=== PATIENT | male | born 1965 | race Caucasian/White ===

== ENCOUNTER 2017-03-30 12:59 | Emergency (ER) | payer MEDICAID, MEDICARE ==
[~2017-03-30] VITALS: Ht 185.4 cm; Wt 115.0 kg
[~2017-03-30 12:59] MED LIST: OFLO.3%A EACH EAR
[2017-03-30 13:03] VITALS: BP 167/91; PULSE 66; RESP 14; TEMP 97.9; O2SAT 99
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
--- NOTE | 2017-03-30 14:38 | PD ---
HPI Chief Complaint: Musculoskeletal Complaint Time Seen by Provider: 14:27 Travel History International Travel<30 days: No Contact w/Intl Traveler<30days: No Traveled to known affect area: No History of Present Illness HPI 51-year-old male presents to the emergency Department with multiple complaints. His is a patient here in the hospital and he is here from [facility] and he has not been able to follow-up with his primary care provider. He presents requesting an x-ray of his left hip secondary to clicking when ambulating and wanting to know if his surgical hardware is in place. His primary care provider wanted him to get an x-ray but he has been and able to follow-up secondary to his being hospitalized. He has history of hip replacement in 1989. Denies new or recent injury. Denies change in gait. Reports 8/10 pain. Takes Percocet for his pain. No known relieving or aggravating factors. Denies paresthesias, loss of sensation, decreased range of motion, decreased strength to the affected extremity. His second complaint is a rash to his groin area that is extremely dry and itchy and has spread down in between his legs and testicles times two weeks. He has tried herg-ssi-vnchmzh jock itch cream for 2 days. Denies fever, vomiting. Has not taken any other medications or tried any other treatments to alleviate symptoms. Symptoms are mild in severity. No known relieving or aggravating factors. His third complaint is a lesion to the shaft of his penis that he noticed this morning. He says it is also itchy. He has never had any lesions on his penis before. He thinks he may have gotten bit by a Flea. He denies penile discharge , pain. Denies testicular pain, swelling. Denies dysuria. Has not taken any medications or tried any treatments to alleviate this symptom. No known aggravating or relieving factors. Symptom is mild in severity. Primary care provider is in [facility]. Has no other medical complaints. No other modifying factors or associated signs and symptoms. FOR[facility] Social History Alcohol Use: No Tobacco Use: No Substance Use: No Allergies-Medications Reported Meds & Prescriptions Reported Meds & Active Scripts Active Floxin (Ofloxacin) 0.3 % Soln 10 Drop EACH EAR DAILY 7 Days Review of Systems Except as stated in HPI: all other systems reviewed are Neg Physical Exam Narrative GENERAL: Well-nourished, well-developed male patient, in no acute distress SKIN: Warm and dry. Dry, erythemic rash to the right groin area; I cannot distinguish if the lesion is vesicular; there is no drainage. HEAD: Atraumatic. Normocephalic. EYES: Pupils equal and round. ENT: Mucosa pink and moist. NECK: Trachea midline. No lymphadenopathy. CARDIOVASCULAR: Regular rate. RESPIRATORY: No retractions or tachypnea. GASTROINTESTINAL: Rounded. GENITOURINARY: Exam done in the presence of a nurse. Circumcised. Testes descended bilaterally without evidence of rotation. There is a single lesion to the dorsal shaft of the penis that measures less than 0.5 cm in diameter. No urethral discharge. MUSCULOSKELETAL: Left hip with full range of motion. Patient ambulatory with a normal gait. No obvious deformities. No clubbing. No cyanosis. No edema. NEUROLOGICAL: Awake and alert. Oriented 3. No obvious cranial nerve deficits. Motor grossly within normal limits. Normal speech. Moves all extremities. 5/5 strength to all extremities. PSYCHIATRIC: Appropriate mood and affect; insight and judgment normal. Data Data Last Documented VS Vital Signs Date Time Temp Pulse Resp B/P (MAP) Pulse Ox O2 Delivery O2 Flow Rate FiO2 03/30/17 13:03 97.9 66 14 167/91 (116) 99 Room Air Orders Orders Hip, Uni(Ap&Lat) W Ap Pelvis (03/30/17 13:22) Ed Discharge Order (03/30/17 14:39) MDM Medical Decision Making Medical Screen Exam Complete: Yes Emergency Medical Condition: Yes Medical Record Reviewed: Yes Differential Diagnosis Chronic hip pain, medical clearance, jock itch, genital herpes Narrative Course 51-year-old male with chronic left hip pain, rash of the groin area, and a single lesion of the penis. Patient is afebrile and nontoxic-appearing. He is ambulatory with a normal gait. Patient has Percocet for his chronic pain. Patient to use [id number] antifungal medication for his groin rash. Instructed patient to follow up with his primary care provider in regards to the lesion of his penis, or to return to the emergency department with worsening of symptoms. Instructed patient to follow up with primary care provider. Patient verbalizes understanding and agreement with treatment plan. Patient is medically cleared and stable for discharge. Discussed reasons to return to the emergency department. Patient agrees with treatment plan. The patients vital signs are stable and the patient is stable for outpatient follow- up and treatment. Patient discharged home, stable and in no acute distress. Diagnosis Primary Impression: Chronic left hip pain Additional Impressions: Rash of groin Lesion of penis Referrals: Orthopedist Primary Care Physician Patient Instructions: General Instructions, Genital Herpes Simplex (ED), Hip Pain (ED), Jock Itch (ED) Additional Instructions: Steq-vmw-gealfvb jock itch cream as directed and as needed for rash Continue pain medications as directed and as needed for hip pain Follow-up with primary care provider Med/Other Pt SpecificInfo: No Change to Meds, No Meds Exist/No RX given Disposition: 01 DISCHARGE HOME Condition: Stable Keara Ibarra Mar 30, 2017 14:38
== END 2017-03-30 15:25 | disposition home or self-care (01) ==
LOC: NEPK 12:59
DX: M25.552 Pain in left hip (principal); G89.29 Other chronic pain; R21 Rash and other nonspecific skin eruption; L98.9 Disorder of the skin and subcutaneous tissue, unspecified
CPT/HCPCS: 73502; 99283

== ENCOUNTER 2018-02-25 03:49 | Inpatient (IN) ==
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
[2018-02-25] MEDS ORDERED: Morphine Sulfate Inj 2 MG/ML Vial IV.PUSH ONE (06:10)
[2018-02-25] MEDS ORDERED: Sod Chloride 0.9% Inj 1,000 ML IV.CONT SCH (06:15)
[2018-02-25] MEDS ORDERED: Bisacodyl 10 MG Supp RECTAL PRN (06:47)
[2018-02-25] MEDS ORDERED: Acetaminophen 325 MG Tablet PO PRN (06:47)
[2018-02-25 06:50] LABS: Baso # (Auto) 0.1 th/mm3 (0.0-0.2); Baso % (Auto) 0.4 % (0.0-2.0); Eos # (Auto) 0.1 th/mm3 (0.0-0.4); Eos % (Auto) 0.9 % (0.0-4.0); Hematocrit 41.5 % (39.0-51.0); Hemoglobin 13.9 gm/dL (13.0-17.0); Lymph # (Auto) 1.5 th/mm3 (1.0-4.8); Lymph % (Auto) 10.4 % (9.0-44.0); Mean Corpuscular HGB Conc 33.6 % (32.0-36.0); Mean Corpuscular Hemoglobin 29.8 pg (27.0-34.0); Mean Corpuscular Volume 88.7 fL (80.0-100.0); Mean Platelet Volume 7.9 fL (7.0-11.0); Mono # (Auto) 1.1 th/mm3 (0.0-0.9); Mono % (Auto) 7.9 % (0.0-8.0); Neut # (Auto) 11.5 th/mm3 (1.8-7.7); Neut % (Auto) 80.4 % (16.0-70.0); Platelet Count 239 th/mm3 (150-450); Red Blood Count 4.68 mil/mm3 (4.50-5.90); Red Cell Distribution Width 14.4 % (11.6-17.2); White Blood Count 14.3 th/mm3 (4.0-11.0)
[2018-02-25 06:59] LABS: Activated Partial Thrombo Time 24.7 sec (23.4-31.7); INR 1.1 Ratio; Prothrombin Time 10.7 sec (9.8-11.6)
[2018-02-25 07:06] LABS: Calcium 8.1 mg/dL (8.5-10.1); Carbon Dioxide 24.5 meq/L (21.0-32.0); Potassium 3.6 meq/L (3.5-5.1)
[2018-02-25] MEDS: Clindamycin 600 mg/NS Premix 600 MG/50 ML PIGGYBACK IV.SIG SCH ×3 (07:56→23:19)
[2018-02-25] MEDS: Sod Chloride 0.9% Inj 1,000 ML IV.CONT SCH ×3 (08:21→16:05)
[2018-02-25] MEDS ORDERED: Morphine Sulfate Inj 2 MG/ML Vial IV.PUSH PRN ×2 (09:26)
[2018-02-25] MEDS ORDERED: Naloxone Inj 0.4 MG/ML Vial IV.PUSH PRN (09:26)
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
[2018-02-25] MEDS: oxyCODONE/Acetaminophen 10/325 Tablet PO PRN ×2 (12:16→16:34)
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
[2018-02-25] MEDS: Morphine Sulfate Inj 2 MG/ML Vial IV.PUSH PRN (23:04)
[2018-02-26] MEDS: oxyCODONE/Acetaminophen 10/325 Tablet PO PRN (04:43)
[2018-02-26] MEDS: Sod Chloride 0.9% Inj 1,000 ML IV.CONT SCH ×2 (04:45→14:01)
[2018-02-26] MEDS: Morphine Sulfate Inj 2 MG/ML Vial IV.PUSH PRN ×2 (10:34→19:12)
[2018-02-26] MEDS: Chlorhexidine Gluconate 0.12% Liq 15 ML UDC SWISH-SPIT SCH ×3 (10:34→17:55)
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
[2018-02-26 11:25] LABS: Baso % (Auto) 0.2 % (0.0-2.0); Eos # (Auto) 0.2 th/mm3 (0.0-0.4); Eos % (Auto) 1.7 % (0.0-4.0); Hematocrit 42.3 % (39.0-51.0); Lymph # (Auto) 1.9 th/mm3 (1.0-4.8); Lymph % (Auto) 16.6 % (9.0-44.0); Mean Corpuscular HGB Conc 35.4 % (32.0-36.0); Mean Corpuscular Hemoglobin 31.3 pg (27.0-34.0); Mean Corpuscular Volume 88.4 fL (80.0-100.0); Mean Platelet Volume 7.9 fL (7.0-11.0); Mono # (Auto) 1.1 th/mm3 (0.0-0.9); Mono % (Auto) 9.6 % (0.0-8.0); Neut # (Auto) 8.4 th/mm3 (1.8-7.7); Neut % (Auto) 71.9 % (16.0-70.0); Platelet Count 207 th/mm3 (150-450); Red Blood Count 4.78 mil/mm3 (4.50-5.90); Red Cell Distribution Width 14.8 % (11.6-17.2); White Blood Count 11.7 th/mm3 (4.0-11.0)
--- NOTE | 2018-02-26 16:57 | ECG ---
Date Performed: 02/26/2018 Time Performed: 16:13:31 PTAGE: 52 years EKG: Sinus rhythm NORMAL ECG NO PREVIOUS TRACING DOCTOR: Adalberto Morrow Interpretating Date/Time 02/26/2018 16:56:09
[2018-02-26] MEDS ORDERED: HYDROmorphone PF Inj 0.5 MG/0.5 ML Syringe IV.PUSH PRN ×2 (20:50→20:52)
[2018-02-27] MEDS: Sod Chloride 0.9% Inj 1,000 ML IV.CONT SCH ×5 (01:28→18:23)
[2018-02-27] MEDS ORDERED: Bupivacaine/Epinephrine Inj 0.25% 50 ML Vial ONE (07:22)
[2018-02-27] MEDS ORDERED: fentaNYL Citrate Inj 250 MCG/5 ML Ampul ONE (07:54)
[2018-02-27] MEDS ORDERED: ceFAZolin 2 GM Premix Inj 2 GM/50 ML PIGGYBACK IV.SIG ONE (08:44)
[2018-02-27] MEDS ORDERED: Metoprolol Tartrate 25 MG Tablet PO ONE (08:45)
[2018-02-27] MEDS ORDERED: Sodium Chlor 0.9% Inj 500 ML IV.CONT ONE (08:45)
[2018-02-27] MEDS ORDERED: Chlorhexidine Gluconate 2% 1 Pack (2 Cloths) TOPICAL ONE (08:45)
[2018-02-27] MEDS ORDERED: ceFAZolin 2 GM IV; once IV.SIG ONE (08:45)
[2018-02-27] MEDS ORDERED: *HYDROmorphone PF Inj 1 MG/ML Ampul PERIprocedural Use ONLY ONE ×2 (10:40→11:08)
[2018-02-27] MEDS: Chlorhexidine Gluconate 0.12% Liq 15 ML UDC SWISH-SPIT SCH ×4 (11:34→18:17)
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
[2018-02-27] MEDS: ceFAZolin 2 GM Premix Inj 2 GM/50 ML PIGGYBACK IV.SIG SCH (16:43)
[2018-02-28] MEDS: ceFAZolin 2 GM Premix Inj 2 GM/50 ML PIGGYBACK IV.SIG SCH (01:48)
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
[2018-02-28 08:22] VITALS: BP 111/59; PULSE 76; RESP 14; TEMP 97.9; O2SAT 97
[2018-02-28] MEDS: Chlorhexidine Gluconate 0.12% Liq 15 ML UDC SWISH-SPIT SCH (09:37)
[2018-02-28] MEDS: Sod Chloride 0.9% Inj 1,000 ML IV.CONT SCH (09:41)
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
== END 2018-02-28 09:51 | disposition home or self-care (01) | DRG 132 ==
LOC: NEPE 03:49 → NEDA 06:48 → NEPFCDU 08:26 → N06 22:47
PROVIDERS: ADMIT Hospitalist; ATTEND Hospitalist
PROC: ORIFMAN (2018-02-27 08:51)
CPT/HCPCS: 70486; 80048; 85025; 85610; 85730; 90772; 90774; 90775; 90782; 90784; 93005; 94150; 96372; 96374; 96375; 97116; 97161; 97166; 99285; C1713; C1776; C8952; J0690; J1170; J1200; J1885; J2270; J2405; J3010; J7030